=== PATIENT | male | born 1980 | race African-American/Black ===

== ENCOUNTER 2020-07-10 11:02 | Observation (INO) | payer SELFPAY ==
[~2020-07-10] VITALS: Ht 185.4 cm; Wt 83.9 kg
[2020-07-10] VITALS (12 sets, daily range): BP systolic 113–128; BP diastolic 71–82
[2020-07-10] MEDS ORDERED: HEPARIN 25,000 UNIT 5,000 UNIT in DEXTROSE 5% 250ML 250 ML IV STA (11:27)
[2020-07-10] MEDS ORDERED: NITROGLYCERIN 2% OINT 1 GM PKT TOP ONE (11:30)
[2020-07-10] MEDS ORDERED: ASPIRIN 81 MG CHEW TAB PO ONE (11:30)
[2020-07-10] MEDS ORDERED: NITROGLYCERIN 2% OINT 1 GM PKT ONE (11:37)
[2020-07-10] MEDS ORDERED: HEPARIN SOD (PORCINE) 5,000 UNIT/ML VIAL ONE (11:37)
[2020-07-10] MEDS ORDERED: MIDAZOLAM HCL 2 MG/2 ML VIAL ONE (11:42)
[2020-07-10] MEDS ORDERED: FENTANYL CITRATE/PF 100MCG/2 ML INJ ONE (11:43)
[2020-07-10] MEDS ORDERED: IOPAMIDOL 370 MG/ML 200 ML INFUS..BTL INJ ONE (11:43)
[2020-07-10] MEDS ORDERED: HEPARIN SOD/SOD CHLORIDE 2,000 ML ONE (11:43)
[2020-07-10] MEDS ORDERED: SODIUM CHLORIDE 0.9% 1000ML 1,000 ML ONE (11:43)
[2020-07-10] MEDS ORDERED: LIDOCAINE HCL 2% LOCAL 20 ML VIAL ONE (11:43)
[2020-07-10] MEDS ORDERED: SODIUM CHLORIDE FLUSH 10 ML SYR INJ PRN (11:45)
[2020-07-10] MEDS ORDERED: HEPARIN SOD (PORCINE) 1000 UNIT/ML 10ML MDV IV ONE (12:00)
[2020-07-10] MEDS ORDERED: SODIUM CHLORIDE 0.9% 1000ML 1,000 ML SCH (17:15)
== END 2020-07-10 21:07 | disposition left against medical advice (07) ==
LOC: FSED 11:29 → CATH LAB 12:08 → MED/SURG3 12:39
PROVIDERS: ADMIT Internal Medicine Cardiovascular Disease; ATTEND Internal Medicine Cardiovascular Disease
DX: R07.89 Other chest pain (principal); F17.210 Nicotine dependence, cigarettes, uncomplicated
CPT/HCPCS: 71045; 71260; 80053; 80076; 82553; 84484; 85025; 85379; 93005; 93458; 99284; C1766; C1769; C1887; G0378; J1644; J2001; J2250; J3010; J7030; Q9967; 99152; 99153